=== PATIENT | female | born 1975 | race Caucasian/White ===

== ENCOUNTER 2019-09-12 13:57 | Observation (INO) ==
[2019-09-12 15:03] LABS: Basophils % 0.3 %; Eosinophils # 0.2 K/mcL (0.0-0.6); Eosinophils % 2.2 %; Hematocrit 42.4 % (35.3-44.9); Hemoglobin 13.7 g/dL (11.5-15.4); Immature Granulocytes % 0.2 % (0-4); Lymphocytes # 2.2 K/mcL (0.6-4.6); Lymphocytes % 24.1 %; Mean Corpuscular HGB Conc 32.3 g/dL (31.6-35.5); Mean Corpuscular Hemoglobin 28.3 pg (28.0-33.3); Mean Corpuscular Volume 87.6 fL (83.0-100.0); Mean Platelet Volume 9.7 fL (9.4-12.4); Monocytes # 0.5 K/mcL (0.0-1.3); Monocytes % 5.3 %; Neutrophils # 6.2 K/mcL (1.6-8.9); Platelet Count 255 K/mcL (140-400); Red Blood Count 4.84 M/mcL (3.82-4.97); Red Cell Distribution Width 12.1 % (11.5-14.5); Segmented Neutrophils % 67.9 %; White Blood Count 9.1 K/mcL (4.3-11.1)
[2019-09-12 15:08] LABS: Bacteria,Urine Few per hpf (None-Few); Bilirubin,Urine Negative (Negative); Blood,Urine Small (Negative); Clarity,Urine Turbid (Clear); Color,Urine Light-Yellow (Yellow); Glucose,Urine (UA) Normal (Normal); Ketones,Urine Negative (Negative); Leukocyte Esterase,Urine Large (Negative); Nitrite,Urine Negative (Negative); Protein,Urine Negative (Neg-Trace); RBC,Urine 15-30 per hpf (0-3); Specific Gravity,Urine 1.008 (1.010-1.025); Squamous Epithelial Cell,Urine Moderate per hpf (None-Few); Urobilinogen,Urine Normal (Normal); WBC,Urine 50-100 per hpf (0-3)
[2019-09-12 15:09] LABS: Alanine Aminotransferase 31 Units/L (7-52); Albumin 4.4 g/dL (3.5-5.7); Albumin/Globulin Ratio 1.8 (1.1-2.2); Alkaline Phosphatase 75 Units/L (34-104); Aspartate Amino Transferase 19 Units/L (13-39); BUN/Creatinine Ratio 18 (6-26); Bilirubin,Total 0.3 mg/dL (0.3-1.0); Blood Urea Nitrogen 12 mg/dL (6-20); Calcium 9.3 mg/dL (8.6-10.3); Carbon Dioxide 25 mEq/L (23-29); Chloride 106 mEq/L (98-107); Globulin 2.5 g/dL (2.4-3.5); Glucose 116 mg/dL (70-105); Osmolality,Calculated 287 (280-300); Potassium 3.5 mEq/L (3.5-5.1); Sodium 138 mEq/L (136-145); Total Protein 6.9 g/dL (6.4-8.9); eGFR For African Americans > 60 (> 60); eGFR For Non-African Americans > 60 (> 60)
[2019-09-12] MEDS ORDERED: Bupivacaine/EPI 1:200k 0.25%PF 30 ML VIAL ONE (16:37)
[2019-09-12] MEDS ORDERED: *HR* FentaNYL (PF) 100 MCG/2 ML VIAL IVP PRN (16:43)
[2019-09-12] MEDS ORDERED: Naloxone 0.4 MG/ML INJ IVP PRN ×2 (16:43→19:09)
[2019-09-12] MEDS ORDERED: flumazeniL 0.5 MG/5 ML VIAL IVP PRN (16:43)
[2019-09-12] MEDS ORDERED: *HR* Promethazine 25 MG/ML VIAL IVP PRN (16:43)
[2019-09-12] MEDS ORDERED: *HR* Rocuronium Bromide 50 MG/5 ML VIAL ONE (16:54)
[2019-09-12] MEDS ORDERED: Lidocaine HCL 4 ML Topical Solution (Laryng-O-Jet Kit Sterile Pak) TP ONE (16:54)
[2019-09-12] MEDS ORDERED: Dexamethasone 4 MG/ML VIAL ONE (16:54)
[2019-09-12] MEDS ORDERED: Lidocaine -MPF 2% 2 ML VIAL ONE (16:54)
[2019-09-12] MEDS ORDERED: *HR* Midazolam HCl 2 MG/2 ML VIAL ONE (16:54)
[2019-09-12] MEDS ORDERED: *HR* FentaNYL (PF) 100 MCG/2 ML VIAL ONE (16:54)
[2019-09-12] MEDS ORDERED: Ondansetron 4 MG/2 ML VIAL ONE ×2 (16:54)
[2019-09-12] MEDS ORDERED: *HR* Propofol 200 MG/20 ML VIAL IVP ONE (16:54)
[2019-09-12] MEDS ORDERED: CefOXitin 2,000 MG VIAL ONE (16:58)
[2019-09-12] MEDS ORDERED: Bupivacaine/EPI 1:200k 0.25%PF 10 ML VIAL INFILT ONE (17:22)
[2019-09-12] MEDS ORDERED: cefOXitin 2,000 MG in Water for inj. (sterile) 20 ML IVP ONE (17:24)
[2019-09-12] MEDS ORDERED: *HR* HYDROMORPHONE 2 MG/ML VIAL ONE (17:40)
[2019-09-12] MEDS ORDERED: Ringers Solution, Lactated 1,000 ML ONE (18:11)
[2019-09-12] MEDS: *HR* HYDROmorphone PF 0.5 MG/0.5 ML SYRINGE IVP PRN ×2 (18:20→18:25)
[2019-09-12] MEDS ORDERED: Ringers Solution, Lactated 1,000 ML IVC SCH (19:09)
[2019-09-12] MEDS ORDERED: Ringers Solution, Lactated 500 ML IVC ONE (19:09)
[2019-09-12] MEDS ORDERED: Ibuprofen 600 MG TABLET PO PRN (19:09)
[2019-09-12] MEDS ORDERED: *HR* HYDROmorphone (PF) 1 MG/ML SYRINGE IVP PRN (19:09)
[2019-09-12] MEDS: Acetaminophen 325 MG TABLET PO PRN (22:53)
[2019-09-13 06:39] LABS: Hematocrit 39.2 % (35.3-44.9); Hemoglobin 12.7 g/dL (11.5-15.4); Mean Corpuscular HGB Conc 32.4 g/dL (31.6-35.5); Mean Corpuscular Hemoglobin 28.7 pg (28.0-33.3); Mean Corpuscular Volume 88.7 fL (83.0-100.0); Mean Platelet Volume 9.7 fL (9.4-12.4); Neutrophils # 8.3 K/mcL (1.6-8.9); Platelet Count 246 K/mcL (140-400); Red Blood Count 4.42 M/mcL (3.82-4.97); Red Cell Distribution Width 12.1 % (11.5-14.5); Segmented Neutrophils % 86.7 %; White Blood Count 9.6 K/mcL (4.3-11.1)
[2019-09-13 06:40] LABS: Basophils % 0.1 %; Immature Granulocytes % 0.4 % (0-4); Lymphocytes # 0.9 K/mcL (0.6-4.6); Lymphocytes % 9.5 %; Monocytes # 0.3 K/mcL (0.0-1.3); Monocytes % 3.3 %
[2019-09-13] MEDS: Acetaminophen 325 MG TABLET PO PRN (07:29)
[2019-09-13] MEDS ORDERED: BuPROPion XL (24 HR) 150 MG TABLET PO SCH (09:00)
[2019-09-13 10:01] VITALS: BP 106/68
== END 2019-09-13 11:10 | disposition home or self-care (01) ==
LOC: 3ANU 13:57 → EMEROOARM 13:57 → 3ANU 16:20
PROVIDERS: ADMIT Surgery; ATTEND Surgery